=== PATIENT | male | born 1945 | race Caucasian/White ===

== ENCOUNTER 2020-03-26 11:01 | Emergency (ER) | payer OTHER ==
[2020-03-26 12:39] LABS: Absolute Lymphocytes (CBC) 1.3 K/uL (0.7-4.9); Basophils % 0.7 % (0-1.3); Lymphocytes % 16.2 % (15.3-44.8); MPV 7.2 fL (7.6-11.3); RBC Red Blood Cell Count 5.29 M/uL (4.33-5.43)
[2020-03-26] MEDS ORDERED: GLUCAGON 1 MG/VIAL ONE ×2 (12:44→13:26)
[2020-03-26 12:47] LABS: Protime INR 1.03
[2020-03-26 12:56] LABS: Albumin 4.1 g/dL (3.4-5.0); Bilirubin Total 0.9 mg/dL (0.2-1.0); Potassium 3.9 mmol/L (3.5-5.1); Protein, Total 7.9 g/dL (6.4-8.2)
--- NOTE | 2020-03-26 13:27 | RAD REPORT ---
EXAM DESCRIPTION: Andrew Single View03/26/2020 12:00 pm CLINICAL HISTORY: Chest pain/dysphasia COMPARISON: none FINDINGS: Lungs are hyperaerated. 4 millimeter nodule right upper lobe. Followup CT chest 6 months r ecommended The remainder of the lungs appear clear of acute infiltrate. The heart is normal size
--- NOTE | 2020-03-26 13:45 | EDPHYS ---
Physician Documentation [facility] Name: Louis Juarez Age: 75 yrs Sex: Male : 1945 Arrival Date: 03/26/2020 Time: 11:04 Bed 2 Private MD: ED Physician Jose Wong HPI: 03/26 11:52 This 75 yrs old Male presents to ER via Ambulatory with complaints of Foreign pm1 Body In Throat. 11:52 The patient presents to the emergency department with food stuck in throat. Onset: The pm1 symptoms/episode began/occurred last night. Possible causes: steak. The symptoms are aggravated by drinking fluids The symptoms are alleviated by causing himself to vomit. He was able to vomit a piece of the steak last night but feels that there is still something stuck in his throat. Associated signs and symptoms: Pertinent negatives: abdominal pain, fever, shortness of breath, chest pain. Severity of symptoms: in the emergency department the symptoms are unchanged. The patient has experienced a previous episode, many years ago, resolved with drinking coca-cola. The patient has not recently seen a physician, Patient is visiting from out of town. Historical: - Allergies: 11:34 No Known Allergies; rb1 - Home Meds: 11:34 atorvastatin oral oral [Active]; Metformin Oral [Active]; rb1 - PMHx: 11:34 Diabetes - NIDDM; High Cholesterol; rb1 - PSHx: 11:34 hemorrhoids; rb1 - Immunization history:: Adult Immunizations up to date. - Social history:: Smoking status: Patient/guardian denies using. ROS: 11:52 Constitutional: Negative for fever, chills, and weight loss, Neck: Negative for injury, pm1 pain, and swelling, Cardiovascular: Negative for chest pain, palpitations, and edema, Respiratory: Negative for shortness of breath, cough, wheezing, and pleuritic chest pain. 11:52 Back: Negative for injury and pain, MS/Extremity: Negative for injury and deformity, Skin: Negative for injury, rash, and discoloration, Neuro: Negative for headache, weakness, numbness, tingling, and seizure. 11:52 Abdomen/GI: Positive for nausea and vomiting, Negative for abdominal pain, diarrhea. Exam: 11:52 Constitutional: This is a well developed, well nourished patient who is awake, alert, pm1 and in no acute distress. Head/Face: Normocephalic, atraumatic. Chest/axilla: Normal chest wall appearance and motion. Nontender with no deformity. No lesions are appreciated. 11:52 Respiratory: Lungs have equal breath sounds bilaterally, clear to auscultation and percussion. No rales, rhonchi or wheezes noted. No increased work of breathing, no retractions or nasal flaring. Abdomen/GI: Soft, non-tender, with normal bowel sounds. No distension or tympany. No guarding or rebound. No evidence of tenderness throughout. Back: No spinal tenderness. No costovertebral tenderness. Full range of motion. Skin: Warm, dry with normal turgor. Normal color with no rashes, no lesions, and no evidence of cellulitis. MS/ Extremity: Pulses equal, no cyanosis. Neurovascular intact. Full, normal range of motion. 11:52 Cardiovascular: Exam negative for acute changes, Rate: normal, Rhythm: regular, Pulses: no pulse deficits are appreciated. 11:52 Neuro: Exam negative for acute changes, Orientation: is normal, Mentation: is normal, Motor: is normal, moves all fours. Vital Signs: 11:34 BP 137 / 83; Pulse 83; Resp 19; Pulse Ox 98% ; Weight 72.57 kg; Height 5 ft. 9 in. rb1 (175.26 cm); Pain 0/10; 12:30 BP 143 / 97; Pulse 69; Resp 17; Pulse Ox 97% ; Pain 0/10; rb1 13:30 BP 134 / 90; Pulse 72; Resp 16; Pulse Ox 99% ; rb1 11:34 Body Mass Index 23.63 (72.57 kg, 175.26 cm) rb1 MDM: 11:38 Patient medically screened. pm1 12:07 Data reviewed: vital signs. Data interpreted: Pulse oximetry: on room air is 98 %. pm1 Interpretation: normal. 12:54 Refusal of service: The patient/guardian displays adequate decision making capability pm1 and despite a detailed discussion of alternatives, benefits, risks, and consequences refuses: Admission to the hospital for further work-up and treatment, will give the patient additional glucagon. Patient does not want to stay in the hospital. 13:25 ED course: Patient does not want to stay in the hospital. He wants to try drinking a pm1 coke because it worked in the past. 13:41 Medication response: Second dose of glucagon effective. Patient reports feeling the pm1 food bolus pass and is able to drink water without any difficulty. 03/26 11:48 Order name: CBC with Diff; Complete Time: 12:49 pm1 03/26 11:48 Order name: CMP; Complete Time: 13:00 pm1 03/26 11:47 Order name: Chest Single View XRAY; Complete Time: 13:33 pm1 03/26 11:48 Order name: PT-INR; Complete Time: 12:49 pm1 03/26 11:47 Order name: EKG; Complete Time: 11:48 pm1 03/26 11:47 Order name: EKG - Nurse/Tech; Complete Time: 13:14 pm1 03/26 11:48 Order name: IV Saline Lock; Complete Time: 12:37 pm1 Administered Medications: 12:37 Drug: Glucagon 1 mg Route: IVP; Site: right antecubital; rb1 12:50 Follow up: Response: No adverse reaction rb1 13:18 Drug: Glucagon 1 mg Route: IVP; Site: right antecubital; rb1 13:34 Follow up: Response: No adverse reaction rb1 Disposition: 03/27 09:06 Co-signature as Attending Physician, Jose Wong MD I agree with the assessment and maycol plan of care. Disposition: 03/26/20 13:44 Discharged to Home. Impression: Foreign body in esophagus - food bolus, resolved. - Condition is Stable. - Discharge Instructions: Swallowed Foreign Body, Adult. - Medication Reconciliation Form, Thank You Letter, Antibiotic Education, Prescription Opioid Use form. - Follow up: Emergency Department; When: As needed; Reason: Worsening of condition. Follow up: Private Physician; When: 2 - 3 days; Reason: Recheck today's complaints, Continuance of care, Re-evaluation by your physician. - Problem is new. - Symptoms have improved. Signatures: Dispatcher [employer] Jose Sears MD MD cha Barber, Rebecca, RN RN rb1 Naif Henry, COMMERCIAL TRUCK DRIVER COMMERCIAL TRUCK DRIVER pm1 Corrections: (The following items were deleted from the chart) 03/26 13:55 13:44 03/26/2020 13:44 Discharged to Home. Impression: Foreign body in esophagus - food rb1 bolus, resolved. Condition is Stable. Forms are Medication Reconciliation Form, Thank You Letter, Antibiotic Education, Prescription Opioid Use. Follow up: Emergency Department; When: As needed; Reason: Worsening of condition. Follow up: Private Physician; When: 2 - 3 days; Reason: Recheck today's complaints, Continuance of care, Re-evaluation by your physician. Problem is new. Symptoms have improved. pm1
--- NOTE | 2020-03-26 13:45 | ER ---
Nurse's Notes [facility] Name: Louis Juarez Age: 75 yrs Sex: Male : 1945 Arrival Date: 03/26/2020 Time: 11:04 Bed 2 Private MD: Diagnosis: Foreign body in esophagus-food bolus, resolved Presentation: 03/26 11:34 Chief complaint: Patient states: Was eating steak last nigh 7-8 pm when it got lodge in rb1 his throat. 11:34 Coronavirus screen: Client denies travel out of the [place] in the last 14 days. At this rb1 time, the client does not indicate any symptoms associated with coronavirus-19. Ebola Screen: Patient denies travel to an Ebola-affected area in the 21 days before illness onset. Initial Sepsis Screen: Does the patient meet any 2 criteria? No. Patient's initial sepsis screen is negative. Does the patient have a suspected source of infection? No. Patient's initial sepsis screen is negative. Risk Assessment: Do you want to hurt yourself or someone else? Patient reports no desire to harm self or others. Onset of symptoms was March 25, 2020 at 19:00. 11:34 Method Of Arrival: Ambulatory rb1 11:34 Acuity: SHONDA 3 rb1 Triage Assessment: 11:34 General: Appears in no apparent distress. Behavior is calm, cooperative. Pain: Denies rb1 pain. EENT: Reports difficulty swallowing Pt. was eating steak last night and reports that a piece got stuck in his throat. Neuro: Level of Consciousness is awake, alert, obeys commands, Oriented to person, place, time, situation. Cardiovascular: Capillary refill < 3 seconds. Respiratory: Airway is patent Respiratory effort is even, unlabored, Respiratory pattern is regular, symmetrical, Denies shortness of breath. GI: Reports nausea, vomiting, vomiting on purpose to try to dislodge the steak. : No signs and/or symptoms were reported regarding the genitourinary system. Derm: Skin is pink, warm \T\ dry. Historical: - Allergies: 11:34 No Known Allergies; rb1 - Home Meds: 11:34 atorvastatin oral oral [Active]; Metformin Oral [Active]; rb1 - PMHx: 11:34 Diabetes - NIDDM; High Cholesterol; rb1 - PSHx: 11:34 hemorrhoids; rb1 - Immunization history:: Adult Immunizations up to date. - Social history:: Smoking status: Patient/guardian denies using. Screenin:34 Abuse screen: Denies threats or abuse. Nutritional screening: No deficits noted. rb1 Tuberculosis screening: No symptoms or risk factors identified. Fall Risk None identified. Assessment: 11:34 General: See triage assessment. rb1 12:30 Reassessment: Patient appears in no apparent distress at this time. No changes from rb1 previously documented assessment. 13:38 Reassessment: Patient appears in no apparent distress at this time. Patient and/or rb1 family updated on plan of care and expected duration. Pain level reassessed. Patient is alert, oriented x 3, equal unlabored respirations, skin warm/dry/pink. The pt. reports that the steak went down and he feels better. Vital Signs: 11:34 BP 137 / 83; Pulse 83; Resp 19; Pulse Ox 98% ; Weight 72.57 kg; Height 5 ft. 9 in. rb1 (175.26 cm); Pain 0/10; 12:30 BP 143 / 97; Pulse 69; Resp 17; Pulse Ox 97% ; Pain 0/10; rb1 13:30 BP 134 / 90; Pulse 72; Resp 16; Pulse Ox 99% ; rb1 11:34 Body Mass Index 23.63 (72.57 kg, 175.26 cm) rb1 ED Course: 11:04 Patient arrived in ED. ag5 11:34 Arm band placed on right wrist. rb1 11:34 Patient has correct armband on for positive identification. Bed in low position. Call rb1 light in reach. Side rails up X 1. Pulse ox on. NIBP on. 11:38 Naif Henry, SHEETMETAL WORKER is PHCP. pm1 11:38 Jose Wong MD is Attending Physician. pm1 11:46 Zulema Jauregui, RN is Primary Nurse. rb1 11:50 Triage completed. rb1 12:00 Chest Single View XRAY In Process Unspecified. EDMS 12:27 Inserted saline lock: 22 gauge in right antecubital area, using aseptic technique. rb1 Blood collected. 13:20 EKG done, by ED staff, reviewed by Jose Wong MD. jb1 13:51 No provider procedures requiring assistance completed. IV discontinued, intact, rb1 bleeding controlled, No redness/swelling at site. Pressure dressing applied. Administered Medications: 12:37 Drug: Glucagon 1 mg Route: IVP; Site: right antecubital; rb1 12:50 Follow up: Response: No adverse reaction rb1 13:18 Drug: Glucagon 1 mg Route: IVP; Site: right antecubital; rb1 13:34 Follow up: Response: No adverse reaction rb1 Outcome: 13:44 Discharge ordered by MD. pm1 13:51 Discharged to home ambulatory. rb1 13:51 Condition: stable 13:51 Discharge instructions given to patient, Instructed on discharge instructions, follow up and referral plans. Demonstrated understanding of instructions, follow-up care, Prescriptions given X none 13:55 Patient left the ED. rb1 Signatures: Dispatcher [employer] EDMS Jun Cabral jb1 Zulema Jauregui, RN RN rb1 Naif Henry, DEVEN SHEETMETAL WORKER pm1 Nicole Childers ag5 Corrections: (The following items were deleted from the chart) 13:12 11:34 Respiratory: Airway is patent Respiratory effort is even, unlabored, Respiratory rb1 pattern is regular, symmetrical, rb1
== END 2020-03-26 13:55 | disposition home or self-care (01) ==
LOC: ER 11:01
DX: T18.128A Food in esophagus causing other injury, initial encounter (principal); X58.XXXA Exposure to other specified factors, initial encounter; E11.9 Type 2 diabetes mellitus without complications
CPT/HCPCS: 93005; 85025; 36415; 85610; 80053; 71045; 96374; 99284; J1610 ×2